=== PATIENT | female | born 1935 | race Hispanic/Latino ===

== ENCOUNTER 2019-12-10 18:32 | Inpatient (IN) | payer MEDICARE, MEDICAID ==
[~2019-12-10 18:32] MED LIST: Iopamidol-370 76% 500 ML 1 ML ONE
[2019-12-10 18:55] LABS: #Lymphocytes 1.7 thou/uL (1.20-3.40); #Monocytes 0.4 thou/uL (0.11-0.59); #Neutrophils 1.6 thou/uL (1.40-6.50); %Basophils 0.2 % (0.0-1.0); %Monocytes 10.4 % (0.0-10.0); %Neutrophils 42.4 % (42.0-75.0); Hemoglobin 8.7 g/dL (12.0-16.0); Mean Corpuscular HGB CONC 32.9 g/dL (32.0-36.0); Mean Corpuscular Hemoglobin 31.2 pg (27.0-31.0); Mean Corpuscular Volume 94.9 fL (78.0-98.0); Mean Platelet Volume 8.3 fL (7.4-10.4); Platelet Count 130 thou/uL (130-400); RBC Distribution Width 12.9 % (11.5-14.5); Red Blood Cell (RBC) Count 2.78 mill/uL (4.20-5.40); White Blood Cell (WBC) Count 3.7 thou/uL (4.8-10.8)
--- NOTE | 2019-12-10 18:57 | CT ---
CT BRAIN WITHOUT CONTRAST: HISTORY: Aphagia. COMPARISON: 01/15/2012 TECHNIQUE: Multiple contiguous axial images were obtained in a CT of the brain without contrast. FINDINGS: There are scattered hypodensities in the subcortical and periventricular white matter, likely seconda ry to small vessel ischemic disease. No large confluent infarction is seen. There is no evidence of h ydrocephalus, intracranial hemorrhage or extraaxial fluid collection. The calvarium and overlying soft tissues are unremarkable. Mucus retention cysts are seen in the bila teral maxillary sinuses. IMPRESSION: No evidence of acute intracranial abnormality. POS: [facility]
[2019-12-10 19:03] LABS: ALT (SGPT) Less than 7 U/L (8-55); AST (SGOT) 16 U/L (5-34); Albumin 2.7 g/dL (3.4-4.8); Alkaline Phosphatase 68 U/L (40-110); Anion Gap 9 mmol/L (10-20); BUN (Urea Nitrogen) 17 mg/dL (9.8-20.1); Bilirubin, Total 0.3 mg/dL (0.2-1.2); Calc. Creatinine Clearance 0 mL/min (70-130); Calcium 7.4 mg/dL (7.8-10.44); Carbon Dioxide 25 mmol/L (23-31); Chloride 112 mmol/L (98-107); Estimated GFR-MDRD 70; Globulin 2.6 g/dL (2.4-3.5); Glucose 174 mg/dL (83-110); Potassium 4.2 mmol/L (3.5-5.1); Protein, Total 5.3 g/dL (6.0-8.3); Sodium 142 mmol/L (136-145)
[2019-12-10 19:05] LABS: INR-International Normal Ratio 1.4; PTT 32.4 SEC (22.9-36.1); Prothrombin Time 16.7 SEC (12.0-14.7)
[2019-12-10 19:15] LABS: CKMB 0.5 ng/mL (0-6.6); Troponin I Less than 0.010 ng/mL (< 0.028)
--- NOTE | 2019-12-10 19:23 | RAD ---
EXAM: CHEST ONE VIEW HISTORY: Altered mental status. Right-sided paralysis and new onset aphasia. COMPARISON: 08/15/2015 FINDINGS: Dual lead left subclavian cardiac pacemaking device is again noted in place. Cardiac silhouette is ma gnified by projection. Pulmonary vasculature is within normal limits. There is atelectasis present at the left lung base. No consolidation or definite pleural effusion is seen. However, trace pleural effusions were seen on CTA of the neck with imaging obtained through the upper lung zones. Osteopenia is present. There is bilateral glenohumeral osteoarthropathy. Degenerative change seen in the spine. Remote right-sided rib fractures are seen. Vascular calcifications are seen in the thoracic aorta. There are calcifications overlying the right shoulder likely related to intra-articul ar loose bodies in the region of the coracoid bursa. There are radiopaque densities overlying the left supraclavicular region which may be related to overlying artifact. Clinical correlation suggeste d. IMPRESSION: No acute cardiopulmonary process.
[2019-12-10] MEDS ORDERED: niCARdipine 25 MG in Sodium Chloride 0.9% 250 ML 240 ML IVPB SCH (19:45)
[2019-12-10] MEDS ORDERED: Labetalol HCl 100 MG/20 ML VIAL ONE (19:55)
[2019-12-10 20:07] LABS: Bilirubin Negative (Negative); Blood, Urine Negative (Negative); Clarity Clear (Clear); Glucose, Urine (Dipstick) Normal (Negative); Leukocyte Negative Leu/uL (Negative); Nitrite Negative (Negative); Protein, Urine (Dipstick) Negative (Neg-Trace); Urobilinogen Normal mg/dL (Less than 2)
[2019-12-10] MEDS ORDERED: Aspirin 325 MG TAB ONE (20:15)
--- NOTE | 2019-12-10 20:24 | CT ---
CT ANGIOGRAM HEAD AND NECK WITH IV CONTRAST AND 3D RECONSTRUCTIONS: History: Level I stroke. Development of aphasia. Normal baseline right sided paralysis. FINDINGS: Vascular calcifications are seen in the aortic arch. There is normal arrangement of the great vessels at the aortic arch which are patent. Bilateral subclavian arteries are patent. The right common carotid artery is tortuous and patent. The left common carotid artery is also patent . Vascular calcifications are seen at the carotid artery bifurcations, but there is less than 50% maxim al stenosis involving the origin of the proximal internal carotid arteries bilaterally. The vertebral arteries are patent and co-dominant bilaterally. The vascular artery is patent. The bilateral middle cerebral and anterior cerebral arteries are patent. There is partial visualization of small bilateral pleural effusions and passive atelectasis. Small cy st seen in the left upper lobe. There are mucous retention cysts in each maxillary antrum. Mucosal thickening is seen in the right sp henoid sinus and bilateral ethmoidal air cells. There is hyperostosis frontalis. IMPRESSION: 1. Patent bilateral internal carotid arteries as well as patent bilateral vertebral arteries. 2. No focal stenosis or branch occlusion is seen involving the [place] or vertebral basilar system. 2. No aneurysm is seen within the limitations of the technique of this exam. 3. Sinus disease. 4. Above findings discussed with Dr. Patel in the Emergency Department on 12-10-2019 at 1911 hours. POS: [facility]
[2019-12-11] MEDS ORDERED: Labetalol HCl 100 MG/20 ML VIAL SLOW IVP PRN ×2 (00:25→09:14)
[2019-12-11 02:09] VITALS: BMI 19.4
[2019-12-11] MEDS ORDERED: Aspirin Chewable 81 MG TAB PO SCH (09:00)
[2019-12-11] MEDS ORDERED: Acetaminophen 325 MG TAB PO PRN (09:14)
[2019-12-11] MEDS ORDERED: hydrALAZINE 20 MG/ML VIAL SLOW IVP PRN (09:14)
[2019-12-11 10:04] LABS: Cardiac Risk 2.3 (Less than 4.5); Valproic Acid (Depakene) 61.2 ug/mL (50.0-100.0)
[2019-12-11 10:43] LABS: Reticulocyte Count 2.9 % (0.5-1.5)
[2019-12-11 11:13] LABS: Iron 49 ug/dL (50-170); Iron Binding Capacity, Total 236 mcg/dL (265-497)
--- NOTE | 2019-12-11 11:40 | HP ---
PRIMARY CARE PHYSICIAN: Dr. Robins. CHIEF COMPLAINT: She was struggling with her speech and then also altered mental status. HISTORY OF PRESENT ILLNESS: The history of present illness is taken primarily from the patient's daughter who is at the bedside as the patient is extremely hard of hearing and also is a difficult historian, but the patient's daughter states that Ms. Simmons was doing fine until she had recently been diagnosed with a urinary tract infection. At that time, she had some generalized weakness. She also noted that her blood pressure had been lower and she had been taken off some of her blood pressure medications, but then recently she noted that her blood pressure started to go up. About a week ago, she saw Dr. Robins, who started her back on some of her blood pressure medications and then last night at around 6:30, she was getting her up to take her to the bathroom when she noticed that she was unable to answer her. When she asked her questions, she basically just kind of stared blankly and looked like she was struggling to say things, she was uttering sounds, but was unable to complete a word or a sentence. Her daughter also says that she was not able to go to the bathroom in the normal way, she was trying to push her shirt down into her pants and seemed like her behavior was odd. For this reason, she brought her to the emergency room. In the ER, she was found to have an elevated blood pressure of 204/104 and by that time, her speech was still a bit altered but was improving. They did a CT scan of the brain stat which did not show any findings, but she is being placed in observation for possible TIA. With regard to the review of systems, this is taken from the daughter and she denies her having any fevers or chills. She says that she has this constant trembling, but she has seen a neurologist for this in the past and they do not think it is Parkinson's. She has not had any headaches or dizziness. No chest pain or shortness of breath. No nausea. No vomiting. No abdominal pain. No change in bowels. 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 REVIEW OF SYSTEMS: All systems were reviewed and are negative except for that mentioned in the history of present illness. PAST MEDICAL HISTORY: Significant for congestive heart failure unknown type, hypertension, seizure disorder, polio, and possible depression. PAST SURGICAL HISTORY: She has had a cholecystectomy, pacemaker, and electroshock treatments. ALLERGIES: TO CIPRO, WHICH CAUSES HALLUCINATIONS. SOCIAL HISTORY: She is . She lives with her daughter. She does need some assistance with activities of daily living. She typically walks with a walker. She has 2 children, one living and her daughter is her medical power of attorney law clerk. She is a nonsmoker and nondrinker. Does not use any drugs and her code status, she would like to be a DNR. FAMILY HISTORY: Significant for heart disease in the family and her son had diabetes mellitus. MEDICATIONS: Include, 1. Multivitamin with minerals. 2. Keppra 1500 mg at bedtime. 3. Depakote 500 mg twice a day. 4. Plavix 75 mg daily. 5. CoQ10 10 mg daily. 6. Crestor 20 mg daily. 7. Risperdal 1 mg twice daily. 8. [place]-3 fatty acids 1000 mg daily. 9. Imdur 60 mg daily. 10. Vitamin D3 2000 units daily. 11. Carvedilol 12.5 mg twice a day. PHYSICAL EXAMINATION: GENERAL: She is alert and oriented, but she does appear chronically ill and a bit frail. VITAL SIGNS: The blood pressure is 152/67, heart rate 68, respiratory rate of 14, temperature is 97.9, and O2 saturation 97% on room air. HEENT: Head is atraumatic, normocephalic. Pupils are equal, round, and reactive. Extraocular muscles are intact. Her sclerae are anicteric. Her throat; there is no erythema, no exudates. NECK: There is no adenopathy. No bruits. LUNGS: Clear to auscultation. There is no wheezing, no rales, no rhonchi. CARDIOVASCULAR: She had a normal S1, S2. I did not appreciate an S3 or S4. No murmurs, clicks, or rubs. ABDOMEN: Obese, soft, nontender, and nondistended. Positive for bowel sounds. No rebound. No guarding. EXTREMITIES: There was no edema. She did have some mild joint hypertrophy and deviation in the hands as well as the feet. There was no calf tenderness. No joint effusions. NEUROLOGIC: Her muscle strength was 5/5 in both her upper and lower extremities. 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 She did have some slight weakness in the right lower extremity, but she was able to dorsiflex and plantarflex the feet. The patellar reflexes were tested and it was 2+ and symmetric. The biceps was equivocal, unable to elicit and she did have some difficulty with finger to nose and she did have some mild dysarthria and some slight expressive aphasia but very, very mild. SKIN AND INTEGUMENT: There are no significant skin changes. No rash. LABORATORY RESULTS: White blood cell count 3.7, hemoglobin 8.7, hematocrit is 26.4, and platelet count is 130. INR is 1.4. Her sodium is 142, potassium 4.2, chloride is 112, CO2 is 25, BUN is 17, creatinine 0.78, glucose is 174. TSH was normal. Urinalysis was essentially negative. She had a CT scan of the brain, which was essentially negative. This is by my reading. She also had a CT angiogram which was negative for any flow-limiting disease and she had a chest x-ray, which the heart size appears grossly normal. She does have a dual-chamber pacemaker in place. Costophrenic angles appear normal and there is no significant airspace disease. Again, this is by my reading. On her EKG, it was dual chamber paced with a rate of around 70. ASSESSMENT: 1. This is a pleasant 84-year-old female, who presents to the emergency room with expressive aphasia. Possible weakness. She has risk factors for stroke including hypertension; therefore, it is likely that this represents an acute either stroke versus transient ischemic attack since her symptoms have been improving. It is possible it could be a partial seizure, however, it is unlike the seizures that she has had in the past and it seems to be more of a dysarthria and expressive aphasia. 2. Hypertensive urgency. Her blood pressure has been elevated and this could have contributed to her symptoms. PLAN: 1. For altered mental status and dysarthria, she will be placed on the Stroke Unit. We will get either an MRI or repeat CT scan, an echocardiogram if this has not been done recently and lipid panel and monitor her blood pressure and titrate as needed. 2. Hypertensive urgency. Her blood pressure has already come down with treatment in the ER. We will restart her home medications and titrate as needed. 3. Seizure disorder. This appears to be clinically stable. We will reconcile and restart her home medications and also check a Depakote level and further treatment will be based on the patient's clinical course and response to treatment. Job ID: [id number]
--- NOTE | 2019-12-11 15:34 | CT ---
CT HEAD WITHOUT CONTRAST: Indications: Follow up stroke protocol. Dysphasia. Comparison: 12-10-2019 FINDINGS: Cortical volume loss. Chronic ischemic white matter change again noted. No definite cortical infarct. Small lacunar infarcts may not be apparent on CT. If there are numerological deficits, recommend furt her evaluation with MRI to assess for restricted diffusion. IMPRESSION: No acute interval change when compared to yesterday's exam. Consider MRI if there are neurological ch anges. POS: [facility]
[2019-12-11] MEDS ORDERED: levETIRAcetam 500 MG TAB PO SCH (21:00)
[2019-12-11] MEDS ORDERED: Atorvastatin Calcium 40 MG TAB PO SCH (21:00)
[2019-12-11] MEDS: Divalproex Sodium DR 500 MG TAB PO SCH (21:20)
[2019-12-11] MEDS: Carvedilol 6.25 MG TAB PO SCH (21:20)
[2019-12-11] MEDS: risperiDONE 1 MG TAB PO SCH (21:20)
[2019-12-12] MEDS ORDERED: risperiDONE 0.25 MG TAB PO SCH (01:00)
[2019-12-12 04:10] LABS: #Lymphocytes 3.3 thou/uL (1.20-3.40); #Monocytes 1.1 thou/uL (0.11-0.59); #Neutrophils 4.5 thou/uL (1.40-6.50); %Basophils 0.5 % (0.0-1.0); %Eosinophils 0.5 % (0.0-10.0); %Lymphocytes 36.8 % (21.0-51.0); %Monocytes 12.2 % (0.0-10.0); %Neutrophils 49.9 % (42.0-75.0); Hemoglobin 11.4 g/dL (12.0-16.0); Mean Corpuscular HGB CONC 32.5 g/dL (32.0-36.0); Mean Corpuscular Hemoglobin 30.4 pg (27.0-31.0); Mean Corpuscular Volume 93.4 fL (78.0-98.0); Mean Platelet Volume 8.1 fL (7.4-10.4); Platelet Count 164 thou/uL (130-400); RBC Distribution Width 12.8 % (11.5-14.5); Red Blood Cell (RBC) Count 3.75 mill/uL (4.20-5.40)
[2019-12-12 04:38] LABS: Anion Gap 11 mmol/L (10-20); BUN (Urea Nitrogen) 13 mg/dL (9.8-20.1); Calc. Creatinine Clearance 55 mL/min (70-130); Calcium 8.9 mg/dL (7.8-10.44); Carbon Dioxide 27 mmol/L (23-31); Chloride 105 mmol/L (98-107); Estimated GFR-MDRD 90; Glucose 91 mg/dL (83-110); Potassium 4.3 mmol/L (3.5-5.1); Sodium 139 mmol/L (136-145)
[2019-12-12] MEDS ORDERED: Aspirin 81 mg Enteric Coated Tablet PO SCH (09:00)
[2019-12-12] MEDS ORDERED: Fish Oil 1,000 MG CAP PO SCH (09:00)
[2019-12-12] MEDS ORDERED: Non-Formulary Item 1 EACH (Cholecalciferol (Vitamin D3) [Vitamin D] 2,000 UNIT) PO SCH (09:00)
[2019-12-12] MEDS ORDERED: Clopidogrel Bisulfate 75 MG TAB PO SCH (09:00)
[2019-12-12] MEDS ORDERED: Multivitamin W/ Minerals 1 TAB PO SCH (09:00)
[2019-12-12] MEDS ORDERED: Ubidecarenone 50 MG CAP PO SCH (09:00)
[2019-12-12] MEDS ORDERED: Enoxaparin Sodium 40 MG/0.4 ML SYRINGE SC SCH (09:00)
[2019-12-12] MEDS ORDERED: UBIDECARENONE PO SCH (09:00)
[2019-12-12] MEDS ORDERED: Rosuvastatin 20 MG TAB PO SCH (09:00)
[2019-12-12] MEDS: FLU VACC TS2019-20(65YR UP)/PF 180 MCG/0.5 ML SYRINGE IM ONE ×2 (09:32→12:06)
[2019-12-12] MEDS: risperiDONE 1 MG TAB PO SCH (09:33)
[2019-12-12] MEDS: Carvedilol 6.25 MG TAB PO SCH (09:38)
[2019-12-12] MEDS: Divalproex Sodium DR 500 MG TAB PO SCH (09:40)
--- NOTE | 2019-12-12 11:59 | PDOC.HOSPP ---
- Subjective Encounter Date: 12/12/19 Encounter Time: 11:56 Subjective: Ms. Simmons was seen today in follow-up of TIA. She does not have any complaints. Her daughter noted a odor from her urine, and matting in her left eye. - Objective Vital Signs & Weight: Vital Signs (12 hours) Temp Pulse Resp BP BP Pulse Ox 12/12/19 11:51 98.6 F 77 17 110/50 L 96 12/12/19 09:38 154/70 H 12/12/19 07:00 98.2 F 72 17 154/70 H 95 Weight Admit Weight 117 lb Weight 117 lb I&O: 12/11/19 12/12/19 12/13/19 06:59 06:59 06:59 Intake Total 360 Balance 360 Result Diagrams: 12/12/19 03:59 12/12/19 03:59 Hospitalist ROS - Medication Medications: Active Medications Generic Name Dose Route Start Last Admin Trade Name Luis Enriqueq PRN Reason Stop Dose Admin Aspirin 81 mg 12/12/19 09:00 12/12/19 09:35 Ecotrin PO 81 mg DAILY EVELYN Administration Carvedilol 12.5 mg 12/11/19 21:00 12/12/19 09:38 Coreg PO 12.5 mg BID EVELYN Administration Cholecalciferol 2,000 units 12/12/19 09:00 12/12/19 09:43 Vitamin D3 PO 1,000 units DAILY EVELYN Administration Clopidogrel Bisulfate 75 mg 12/12/19 09:00 12/12/19 09:36 Plavix PO 75 mg DAILY EVELYN Administration Coenzyme Q10 50 mg 12/12/19 09:00 12/12/19 09:41 Coenzyme Q10 PO 50 mg DAILY EVELYN Administration Divalproex Sodium 500 mg 12/11/19 21:00 12/12/19 09:40 Depakote PO 500 mg BID EVELYN Administration Enoxaparin Sodium 40 mg 12/12/19 09:00 12/12/19 09:44 Lovenox SC Not Given 899 EVELYN Fish Oil 1,000 mg 12/12/19 09:00 12/12/19 09:44 Fish Oil PO Not Given DAILY [facility] Iron/Minerals/Multivitamins 1 tab 12/12/19 09:00 12/12/19 09:45 Theragran M PO Not Given DAILY [facility]ELYN Isosorbide Mononitrate 60 mg 12/12/19 09:00 12/12/19 09:39 Imdur PO 60 mg DAILY EVELYN Administration Labetalol HCl 20 mg 12/11/19 09:14 12/11/19 16:01 Normodyne SLOW IVP 20 mg Q4H PRN Administration SBP > 180 and HR >/= 70 Levetiracetam 1,500 mg 12/11/19 21:00 12/12/19 01:25 Keppra PO Not Given HS EVELYN Risperidone 1 mg 12/11/19 21:00 12/12/19 09:33 Risperidone PO 1 mg BID EVELYN Administration Rosuvastatin Calcium 20 mg 12/12/19 09:00 12/12/19 09:37 Crestor PO 20 mg DAILY EVELYN Administration - Exam Eye: PERRL (no erythema) Heart: RRR, no murmur, no gallops, no rubs, normal peripheral pulses Respiratory: CTAB, no wheezes, no rales, no ronchi, normal chest expansion Gastrointestinal: soft, non-tender, non-distended, normal bowel sounds Extremities: no cyanosis, no edema Hosp A/P (1) TIA (transient ischemic attack) Code(s): G45.9 - TRANSIENT CEREBRAL ISCHEMIC ATTACK, UNSPECIFIED Status: Acute (2) Hypertension Code(s): I10 - ESSENTIAL (PRIMARY) HYPERTENSION Status: Chronic (3) Post-polio syndrome Code(s): G14 - POSTPOLIO SYNDROME Status: Chronic (4) Anemia, chronic disease Code(s): D63.8 - ANEMIA IN OTHER CHRONIC DISEASES CLASSIFIED ELSEWHERE Status : Acute - Plan * TIA- aphasia * Will check a UA * HTN- blood pressure was a bit labile- but stable for discharge home
[2019-12-12 15:55] VITALS: BP 148/65; TEMP 97.9
[2019-12-12 17:25] LABS: Bilirubin Negative (Negative); Blood, Urine Negative (Negative); Clarity Turbid (Clear); Glucose, Urine (Dipstick) Normal (Negative); Leukocyte 250 Leu/uL (Negative); Nitrite 2+ (Negative); Protein, Urine (Dipstick) Negative (Neg-Trace); RBC/HPF 0-3 HPF (0-3); Squamous Epithelial 0-3 HPF (0-3)
[2019-12-12 17:43] LABS: Bacteria/HPF 2+ HPF (None Seen)
[2019-12-12 17:44] LABS: Urine Culture Reflex Yes Yes
--- NOTE | 2019-12-13 03:25 | DIS ---
DATE OF ADMISSION: 12/10/2019 DATE OF DISCHARGE: 12/12/2019 DISCHARGE DISPOSITION: Home. DISCHARGE DIAGNOSES: 1. Transient ischemic attack. 2. Hypertension. 3. Seizure disorder. 4. Post-polio syndrome. 5. Conjunctivitis. DISCHARGE MEDICATIONS: 1. Multivitamin once a day. 2. Keppra 1500 mg at bedtime. 3. Erythromycin base ointment to the right eye 3 times a day. 4. Depakote 500 mg twice daily. 5. Plavix 75 mg daily. 6. CoQ10 of 10 mg p.o. daily. 7. Crestor 20 mg daily. 8. Risperdal 1 mg twice a day. 9. [place]-3 fatty acids 1000 mg daily. 10. Imdur 60 mg daily. 11. Vitamin D3 of 2000 units daily. 12. Carvedilol 12.5 mg twice a day. IMAGING DONE DURING ADMISSION: The patient had a CT scan of the brain, in which there was no evidence of any acute intracranial abnormality. The patient had a CT angiogram showing patent bilateral internal carotids. There is no focal stenosis. No aneurysm. The patient had an echocardiogram in which ejection fraction was estimated at 55% to 60%. There was trace mitral regurgitation present. The patient had a repeat CT scan showing no intracranial abnormalities. HOSPITAL COURSE: Ms. Simmons is a pleasant 84-year-old female, who presented to the emergency room with aphasia. She had difficulty forming her words. Her daughter brought her into the hospital due to concern. She was placed in the hospital for TIA. CT scan of the brain was done showing no intracranial abnormalities. An MRI was not able to be performed due to the fact that she has a pacemaker. Repeat CT scan was done in lieu of the MRI. This did not show any changes and during the hospital stay, her symptoms completely resolved. She was also found to have an evidence of conjunctivitis and was placed on erythromycin ointment for this and she preferred to follow up with her regular neurologist for recommendations regarding any changes in medications. She was discharged then on 12/12/2019. Job ID: [id number]
== END 2019-12-12 20:23 | disposition home or self-care (01) | DRG 69 ==
LOC: ERS 18:32 → CCU 23:28 → 2SE 23:35
PROVIDERS: ADMIT Hospitalist; ATTEND Hospitalist
DX: G45.9 Transient cerebral ischemic attack, unspecified (principal); Z66 Do not resuscitate; G40.909 Epilepsy, unspecified, not intractable, without status epilepticus; G14 Postpolio syndrome; I50.9 Heart failure, unspecified; I11.0 Hypertensive heart disease with heart failure; D63.8 Anemia in other chronic diseases classified elsewhere; I16.0 Hypertensive urgency; Z23 Encounter for immunization; Z90.49 Acquired absence of other specified parts of digestive tract; Z95.0 Presence of cardiac pacemaker; Z88.1 Allergy status to other antibiotic agents; Z79.899 Other long term (current) drug therapy; Z79.02 Long term (current) use of antithrombotics/antiplatelets
CPT/HCPCS: 36415; 36416; 70450; 70496; 70498; 71045; 80048; 80053; 80061; 80164; 81001; 81003; 82140; 82550; 82553; 82728; 83540; 83550; 83735; 84443; 84484; 85025; 85046; 85610; 85730; 87077; 87086; 87186; 90471; 90662; 93005; 93306; 96374; 96376; G0008; J7050; Q9967

== ENCOUNTER 2021-08-20 17:03 | Inpatient (IN) | payer MEDICARE, MEDICAID ==
[2021-08-20] MEDS ORDERED: Labetalol HCl 100 MG/20 ML VIAL ONE ×2 (17:49→21:09)
[2021-08-20 18:14] LABS: #Basophils 0.1 thou/uL (0.0-0.2); #Neutrophils 5.9 thou/uL (1.40-6.50); %Basophils 0.5 % (0.0-1.0); %Eosinophils 0.4 % (0.0-10.0); %Lymphocytes 30.3 % (21.0-51.0); %Monocytes 10.1 % (0.0-10.0); %Neutrophils 58.8 % (42.0-75.0); Hemoglobin 13.2 g/dL (12.0-16.0); Mean Corpuscular Hemoglobin 32.1 pg (27.0-31.0); Mean Corpuscular Volume 97.2 fL (78.0-98.0); Mean Platelet Volume 7.8 fL (7.4-10.4); Platelet Count 219 thou/uL (130-400); RBC Distribution Width 11.1 % (11.5-14.5); Red Blood Cell (RBC) Count 4.12 mill/uL (4.20-5.40)
[2021-08-20 18:40] LABS: ALT (SGPT) 17 U/L (8-55); AST (SGOT) 20 U/L (5-34); Albumin 3.4 g/dL (3.4-4.8); Alkaline Phosphatase 72 U/L (40-110); Anion Gap 12 mmol/L (10-20); BUN (Urea Nitrogen) 12 mg/dL (9.8-20.1); Bilirubin, Total 0.5 mg/dL (0.2-1.2); Calc. Creatinine Clearance 0 mL/min (70-130); Calcium 9.1 mg/dL (7.8-10.44); Carbon Dioxide 28 mmol/L (23-31); Chloride 96 mmol/L (98-107); Glucose 89 mg/dL (83-110); Potassium 4.5 mmol/L (3.5-5.1); Protein, Total 6.4 g/dL (5.8-8.1); Sodium 131 mmol/L (136-145)
[2021-08-20 19:13] LABS: Bilirubin Negative (Negative); Blood, Urine Negative (Negative); Clarity Clear (Clear); Glucose, Urine (Dipstick) Normal (Negative); Ketone, Urine Trace mg/dL (Negative); Leukocyte Negative Leu/uL (Negative); Nitrite Negative (Negative); Protein, Urine (Dipstick) Negative (Neg-Trace); Specific Gravity, Urine 1.014 (1.002-1.036); Urobilinogen Normal mg/dL (Less than 2); pH, Urine 5.5 (5.0-9.0)
[2021-08-20] MEDS ORDERED: Lorazepam 2 MG/ML VIAL ONE (19:48)
[2021-08-20] MEDS ORDERED: Ondansetron PF 4 MG/2 ML Vial IVP PRN (20:18)
[2021-08-20] MEDS ORDERED: Acetaminophen 325 MG TAB PO PRN (20:18)
[2021-08-20] MEDS ORDERED: Sodium Chloride 0.9% 1,000 ML IV SCH (20:45)
[2021-08-20] MEDS ORDERED: Labetalol HCl 100 MG/20 ML VIAL SLOW IVP SCH (21:00)
[2021-08-20 21:36] LABS: SARS-CoV-2 NAA Rapid Test Not Detected (NotDetected)
[2021-08-20] MEDS ORDERED: levETIRAcetam 500 MG TAB PO SCH (21:45)
[2021-08-20] MEDS ORDERED: Divalproex Sodium DR 500 MG TAB PO SCH (22:15)
[2021-08-20] MEDS ORDERED: Doxycycline 100 MG CAP PO SCH (22:30)
[2021-08-21] MEDS ORDERED: Ziprasidone 20 MG CAP PO SCH (01:30)
[2021-08-21] MEDS: guaiFENesin/DM ER PO PRN ×2 (01:58→21:51)
[2021-08-21] MEDS ORDERED: Carvedilol 6.25 MG TAB PO SCH (03:00)
[2021-08-21 04:57] LABS: #Lymphocytes 1.9 thou/uL (1.20-3.40); #Monocytes 1.4 thou/uL (0.11-0.59); #Neutrophils 7.7 thou/uL (1.40-6.50); %Basophils 0.1 % (0.0-1.0); %Eosinophils 0.2 % (0.0-10.0); %Lymphocytes 17.1 % (21.0-51.0); %Neutrophils 69.6 % (42.0-75.0); Hemoglobin 12.7 g/dL (12.0-16.0); Mean Corpuscular HGB CONC 34.3 g/dL (32.0-36.0); Mean Corpuscular Hemoglobin 32.4 pg (27.0-31.0); Mean Corpuscular Volume 94.6 fL (78.0-98.0); Mean Platelet Volume 7.8 fL (7.4-10.4); Platelet Count 227 thou/uL (130-400); RBC Distribution Width 10.9 % (11.5-14.5); Red Blood Cell (RBC) Count 3.92 mill/uL (4.20-5.40); White Blood Cell (WBC) Count 11.1 thou/uL (4.8-10.8)
[2021-08-21 05:18] LABS: Anion Gap 12 mmol/L (10-20); BUN (Urea Nitrogen) 9 mg/dL (9.8-20.1); Calc. Creatinine Clearance 59 mL/min (70-130); Calcium 8.6 mg/dL (7.8-10.44); Carbon Dioxide 25 mmol/L (23-31); Chloride 92 mmol/L (98-107); Glucose 113 mg/dL (83-110); Potassium 4.1 mmol/L (3.5-5.1); Sodium 125 mmol/L (136-145)
[2021-08-21] MEDS: hydrALAZINE 20 MG/ML VIAL SLOW IVP PRN (06:13)
[2021-08-21] MEDS: Divalproex Sodium DR 500 MG TAB PO SCH ×2 (08:01→21:51)
[2021-08-21] MEDS: Carvedilol 6.25 MG TAB PO SCH ×2 (08:01→21:51)
[2021-08-21] MEDS: Doxycycline 100 MG CAP PO SCH ×2 (08:01→21:51)
[2021-08-21] MEDS ORDERED: Sodium Chloride 3% 100 ML IVPB SCH (08:30)
[2021-08-21] MEDS ORDERED: FLU VACC QS2021-22(65YR UP)/PF 240 MCG/0.7 ML SYRINGE IM ONE (09:00)
[2021-08-21 09:34] LABS: Anion Gap 14 mmol/L (10-20); BUN (Urea Nitrogen) 7 mg/dL (9.8-20.1); Calc. Creatinine Clearance 63 mL/min (70-130); Calcium 8.4 mg/dL (7.8-10.44); Carbon Dioxide 22 mmol/L (23-31); Chloride 94 mmol/L (98-107); Glucose 120 mg/dL (83-110); Potassium 4.5 mmol/L (3.5-5.1); Sodium 125 mmol/L (136-145)
[2021-08-21 13:45] LABS: Chloride 97 mmol/L (98-107); Potassium 5.3 mmol/L (3.5-5.1); Sodium 124 mmol/L (136-145)
[2021-08-21 13:54] LABS: BUN (Urea Nitrogen) 7 mg/dL (9.8-20.1); Calc. Creatinine Clearance 55 mL/min (70-130); Calcium 7.8 mg/dL (7.8-10.44); Carbon Dioxide 17 mmol/L (23-31); Glucose 103 mg/dL (83-110)
[2021-08-21 16:18] LABS: Anion Gap 15 mmol/L (10-20)
[2021-08-21 17:50] LABS: Anion Gap 14 mmol/L (10-20); BUN (Urea Nitrogen) 9 mg/dL (9.8-20.1); Calc. Creatinine Clearance 51 mL/min (70-130); Calcium 8.9 mg/dL (7.8-10.44); Carbon Dioxide 20 mmol/L (23-31); Chloride 94 mmol/L (98-107); Glucose 149 mg/dL (83-110); Potassium 4.3 mmol/L (3.5-5.1); Sodium 124 mmol/L (136-145)
[2021-08-21 21:23] LABS: BUN (Urea Nitrogen) 12 mg/dL (9.8-20.1); Calc. Creatinine Clearance 42 mL/min (70-130); Calcium 8.5 mg/dL (7.8-10.44); Carbon Dioxide 23 mmol/L (23-31); Glucose 148 mg/dL (83-110)
[2021-08-21] MEDS: levETIRAcetam 500 MG TAB PO SCH (21:51)
[2021-08-21] MEDS: Ziprasidone 20 MG CAP PO SCH (21:56)
[2021-08-21 22:01] LABS: Chloride 96 mmol/L (98-107); Potassium 4.3 mmol/L (3.5-5.1); Sodium 129 mmol/L (136-145)
[2021-08-21 22:04] LABS: Anion Gap 16 mmol/L (10-20)
[2021-08-22 05:26] LABS: #Lymphocytes 2.6 thou/uL (1.20-3.40); #Neutrophils 6.4 thou/uL (1.40-6.50); %Eosinophils 0.4 % (0.0-10.0); %Lymphocytes 26.2 % (21.0-51.0); %Monocytes 10.2 % (0.0-10.0); %Neutrophils 63.2 % (42.0-75.0); Hemoglobin 11.9 g/dL (12.0-16.0); Mean Corpuscular HGB CONC 34.6 g/dL (32.0-36.0); Mean Corpuscular Hemoglobin 33.1 pg (27.0-31.0); Mean Corpuscular Volume 95.7 fL (78.0-98.0); Mean Platelet Volume 7.4 fL (7.4-10.4); Platelet Count 237 thou/uL (130-400); RBC Distribution Width 11.2 % (11.5-14.5); Red Blood Cell (RBC) Count 3.58 mill/uL (4.20-5.40); White Blood Cell (WBC) Count 10.1 thou/uL (4.8-10.8)
[2021-08-22 05:54] LABS: Anion Gap 11 mmol/L (10-20); BUN (Urea Nitrogen) 13 mg/dL (9.8-20.1); Calc. Creatinine Clearance 57 mL/min (70-130); Calcium 8.6 mg/dL (7.8-10.44); Carbon Dioxide 27 mmol/L (23-31); Chloride 95 mmol/L (98-107); Glucose 101 mg/dL (83-110); Potassium 4.1 mmol/L (3.5-5.1); Sodium 129 mmol/L (136-145)
[2021-08-22] MEDS: hydrALAZINE 20 MG/ML VIAL SLOW IVP PRN (06:00)
[2021-08-22] MEDS: Divalproex Sodium DR 500 MG TAB PO SCH ×2 (08:02→20:32)
[2021-08-22] MEDS: Carvedilol 6.25 MG TAB PO SCH ×2 (08:02→20:31)
[2021-08-22] MEDS: Doxycycline 100 MG CAP PO SCH ×2 (08:02→20:31)
[2021-08-22 18:05] LABS: Sodium 126 mmol/L (136-145)
[2021-08-22] MEDS: levETIRAcetam 500 MG TAB PO SCH (20:31)
[2021-08-22] MEDS: Ziprasidone 20 MG CAP PO SCH (20:32)
[2021-08-23 06:12] LABS: Anion Gap 12 mmol/L (10-20); BUN (Urea Nitrogen) 15 mg/dL (9.8-20.1); Calc. Creatinine Clearance 53 mL/min (70-130); Calcium 8.7 mg/dL (7.8-10.44); Carbon Dioxide 27 mmol/L (23-31); Chloride 92 mmol/L (98-107); Glucose 100 mg/dL (83-110); Potassium 4.2 mmol/L (3.5-5.1); Sodium 127 mmol/L (136-145)
[2021-08-23] MEDS ORDERED: Sodium Chloride 1 GM TAB PO SCH (09:00)
[2021-08-23] MEDS: Doxycycline 100 MG CAP PO SCH ×2 (09:18→21:16)
[2021-08-23] MEDS: Carvedilol 6.25 MG TAB PO SCH ×2 (09:18→21:17)
[2021-08-23] MEDS: Divalproex Sodium DR 500 MG TAB PO SCH ×2 (09:18→21:18)
[2021-08-23] MEDS ORDERED: Amlodipine 5 MG TAB PO SCH ×2 (10:15→13:45)
[2021-08-23] MEDS: Sodium Chloride 1 GM TAB PO SCH ×2 (14:10→21:16)
[2021-08-23] MEDS: levETIRAcetam 500 MG TAB PO SCH (21:17)
[2021-08-23] MEDS: Ziprasidone 20 MG CAP PO SCH (21:17)
[2021-08-23] MEDS: guaiFENesin ER 600 MG TAB PO SCH (21:17)
[2021-08-24] MEDS: hydrALAZINE 20 MG/ML VIAL SLOW IVP PRN (03:27)
[2021-08-24 05:17] LABS: #Eosinphils 0.1 thou/uL (0.0-0.7); #Lymphocytes 2.8 thou/uL (1.20-3.40); #Monocytes 1.3 thou/uL (0.11-0.59); #Neutrophils 5.9 thou/uL (1.40-6.50); %Basophils 0.4 % (0.0-1.0); %Eosinophils 1.4 % (0.0-10.0); %Monocytes 13.1 % (0.0-10.0); %Neutrophils 58.1 % (42.0-75.0); Hemoglobin 12.7 g/dL (12.0-16.0); Mean Corpuscular HGB CONC 33.9 g/dL (32.0-36.0); Mean Corpuscular Hemoglobin 32.6 pg (27.0-31.0); Mean Corpuscular Volume 96.2 fL (78.0-98.0); Mean Platelet Volume 7.2 fL (7.4-10.4); Platelet Count 274 thou/uL (130-400); RBC Distribution Width 11.2 % (11.5-14.5); Red Blood Cell (RBC) Count 3.89 mill/uL (4.20-5.40); White Blood Cell (WBC) Count 10.2 thou/uL (4.8-10.8)
[2021-08-24 05:39] LABS: Anion Gap 12 mmol/L (10-20); BUN (Urea Nitrogen) 10 mg/dL (9.8-20.1); Calc. Creatinine Clearance 62 mL/min (70-130); Calcium 8.5 mg/dL (7.8-10.44); Carbon Dioxide 24 mmol/L (23-31); Chloride 96 mmol/L (98-107); Glucose 87 mg/dL (83-110); Potassium 3.9 mmol/L (3.5-5.1); Sodium 128 mmol/L (136-145)
[2021-08-24] MEDS ORDERED: Sodium Chloride 1 GM TAB PO SCH (06:45)
[2021-08-24] MEDS: Doxycycline 100 MG CAP PO SCH ×2 (08:44→21:05)
[2021-08-24] MEDS: guaiFENesin ER 600 MG TAB PO SCH ×2 (08:45→21:06)
[2021-08-24] MEDS: Divalproex Sodium DR 500 MG TAB PO SCH ×2 (08:45→21:07)
[2021-08-24] MEDS: Carvedilol 6.25 MG TAB PO SCH ×2 (08:46→21:06)
[2021-08-24] MEDS: Amlodipine 10 MG TAB PO SCH (08:46)
[2021-08-24] MEDS: Sodium Chloride 1 GM TAB PO SCH ×2 (14:41→21:18)
[2021-08-24] MEDS: levETIRAcetam 500 MG TAB PO SCH (21:05)
[2021-08-24] MEDS: Ziprasidone 20 MG CAP PO SCH (21:08)
[2021-08-25 05:59] LABS: Anion Gap 9 mmol/L (10-20); BUN (Urea Nitrogen) 13 mg/dL (9.8-20.1); Calc. Creatinine Clearance 61 mL/min (70-130); Calcium 8.4 mg/dL (7.8-10.44); Carbon Dioxide 29 mmol/L (23-31); Chloride 96 mmol/L (98-107); Glucose 85 mg/dL (83-110); Potassium 3.9 mmol/L (3.5-5.1); Sodium 130 mmol/L (136-145)
[2021-08-25 09:09] VITALS: BMI 19.3
[2021-08-25] MEDS: Carvedilol 6.25 MG TAB PO SCH ×2 (09:36→21:14)
[2021-08-25] MEDS: Doxycycline 100 MG CAP PO SCH ×2 (09:36→21:13)
[2021-08-25] MEDS: Sodium Chloride 1 GM TAB PO SCH ×3 (09:37→21:14)
[2021-08-25] MEDS: guaiFENesin ER 600 MG TAB PO SCH ×2 (09:37→21:15)
[2021-08-25] MEDS: Divalproex Sodium DR 500 MG TAB PO SCH ×2 (09:37→21:15)
[2021-08-25] MEDS: Amlodipine 10 MG TAB PO SCH (09:37)
[2021-08-25 10:50] LABS: Magnesium 1.8 mg/dL (1.6-2.6); Phosphorus 3.1 mg/dL (2.3-4.7)
[2021-08-25] MEDS ORDERED: Carvedilol 6.25 MG TAB PO SCH (11:30)
[2021-08-25] MEDS ORDERED: Magnesium 2 GM/50 ML 2 GM in Premix Bag 1 BAG IVPB SCH (11:45)
[2021-08-25] MEDS ORDERED: Saccharomyces boulardii 250 MG CAP PO SCH (21:00)
[2021-08-25] MEDS: Ziprasidone 20 MG CAP PO SCH (21:14)
[2021-08-25] MEDS: levETIRAcetam 500 MG TAB PO SCH (21:33)
[2021-08-26 05:04] LABS: #Eosinphils 0.1 thou/uL (0.0-0.7); #Lymphocytes 2.8 thou/uL (1.20-3.40); #Monocytes 0.9 thou/uL (0.11-0.59); #Neutrophils 4.5 thou/uL (1.40-6.50); %Basophils 0.4 % (0.0-1.0); %Eosinophils 0.8 % (0.0-10.0); %Lymphocytes 33.5 % (21.0-51.0); %Monocytes 11.2 % (0.0-10.0); %Neutrophils 54.2 % (42.0-75.0); Hemoglobin 11.8 g/dL (12.0-16.0); Mean Corpuscular HGB CONC 32.7 g/dL (32.0-36.0); Mean Corpuscular Hemoglobin 31.3 pg (27.0-31.0); Mean Platelet Volume 6.5 fL (7.4-10.4); Platelet Count 326 thou/uL (130-400); RBC Distribution Width 11.2 % (11.5-14.5); Red Blood Cell (RBC) Count 3.76 mill/uL (4.20-5.40); White Blood Cell (WBC) Count 8.3 thou/uL (4.8-10.8)
[2021-08-26 05:25] LABS: Anion Gap 11 mmol/L (10-20); BUN (Urea Nitrogen) 14 mg/dL (9.8-20.1); Calc. Creatinine Clearance 63 mL/min (70-130); Calcium 8.4 mg/dL (7.8-10.44); Carbon Dioxide 24 mmol/L (23-31); Chloride 98 mmol/L (98-107); Glucose 89 mg/dL (83-110); Potassium 3.9 mmol/L (3.5-5.1); Sodium 129 mmol/L (136-145)
[2021-08-26] MEDS: Divalproex Sodium DR 500 MG TAB PO SCH (08:44)
[2021-08-26] MEDS: Doxycycline 100 MG CAP PO SCH (08:45)
[2021-08-26] MEDS: Carvedilol 6.25 MG TAB PO SCH (08:45)
[2021-08-26] MEDS: Amlodipine 10 MG TAB PO SCH (08:45)
[2021-08-26] MEDS: guaiFENesin ER 600 MG TAB PO SCH (08:45)
[2021-08-26] MEDS ORDERED: Torsemide 10 MG TAB PO SCH (09:00)
[2021-08-26] MEDS: Sodium Chloride 1 GM TAB PO SCH ×2 (10:08→14:15)
[2021-08-26 11:44] VITALS: TEMP 98
[2021-08-26 15:36] VITALS: BP 142/63
== END 2021-08-26 16:46 | disposition hospice, inpatient (51) | DRG 644 ==
LOC: ERS 17:03 → 2NO 21:07 → OBSVTOIN 08-21 18:51
PROVIDERS: ADMIT Internal Medicine; ATTEND Internal Medicine
DX: E22.2 Syndrome of inappropriate secretion of antidiuretic hormone (principal); I50.32 Chronic diastolic (congestive) heart failure; I11.0 Hypertensive heart disease with heart failure; G40.909 Epilepsy, unspecified, not intractable, without status epilepticus; J32.9 Chronic sinusitis, unspecified; Z66 Do not resuscitate; Z51.5 Encounter for palliative care; E83.42 Hypomagnesemia; Z20.822 Contact with and (suspected) exposure to COVID-19; M19.90 Unspecified osteoarthritis, unspecified site; D63.8 Anemia in other chronic diseases classified elsewhere; Z86.73 Personal history of transient ischemic attack (TIA), and cerebral infarction without residual deficits; Z88.1 Allergy status to other antibiotic agents; Z90.49 Acquired absence of other specified parts of digestive tract; Z79.899 Other long term (current) drug therapy; Z95.0 Presence of cardiac pacemaker
CPT/HCPCS: 0240U; 36415; 51701; 70450; 71045; 80048; 80053; 80164; 80177; 81003; 83605; 83735; 83930; 83935; 84100; 84300; 84443; 84484; 85025; 93005; 96374; 96375; 96376; G0378; J0360; J2060; J3475; J7050; J7131